=== PATIENT | female | born 1950 | race Caucasian/White ===

== ENCOUNTER 2016-10-30 04:30 | Day surgery (SDC) | payer BC, MEDICARE ==
[~2016-10-30 04:30] MED LIST: ASAB PO; COREG6 PO; CRESTOR10 PO; HALCION0.25 MG PO; KLONO5 PO; LEVOTHYROXIN50 MCG PO; LIBRAX PO; LIOR10 PO; LOTREL1 CA2 PO; MCZ25 PO; NEUR300 PO; NEXIUM40 PO; NOVOLOG SC; NUVIGIL250 MG PO; PCET PO; TOPAMAX50 MG PO; TRESIBA FL100 UNIT/1 SC; TRILEP300 PO; TRINTELLIX20 MG PO; WELLSR150 PO; ZANTAC300 MG PO
== END 2016-10-30 23:59 | disposition home or self-care (01) ==
LOC: SDC 04:30
PROVIDERS: Orthopaedic Surgery
PROC: 3E0R3BZ Introduction of Anesthetic Agent into Spinal Canal, Percutaneous Approach (ICD-10-PCS; 2016-10-30)
PROC: B01BYZZ Fluoroscopy of Spinal Cord using Other Contrast (ICD-10-PCS; 2016-10-30)
PROC: 3E0R33Z Introduction of Anti-inflammatory into Spinal Canal, Percutaneous Approach (ICD-10-PCS; principal; 2016-10-30 07:30)
DX: M54.16 Radiculopathy, lumbar region (principal); E11.9 Type 2 diabetes mellitus without complications; Z88.5 Allergy status to narcotic agent; Z91.040 Latex allergy status; Z88.8 Allergy status to other drugs, medicaments and biological substances; Z79.82 Long term (current) use of aspirin; Z79.899 Other long term (current) drug therapy; Z79.4 Long term (current) use of insulin; Z79.891 Long term (current) use of opiate analgesic; Z90.710 Acquired absence of both cervix and uterus; Z90.89 Acquired absence of other organs; Z98.890 Other specified postprocedural states; Z98.41 Cataract extraction status, right eye; Z98.42 Cataract extraction status, left eye
CPT/HCPCS: 82962; J1040; J2250; J3010; Q9967